=== PATIENT | male | born 1985 | race Caucasian/White ===

== ENCOUNTER 2022-11-09 18:17 | Emergency (ER) | payer BC ==
[2022-11-09 18:38] VITALS: BP 116/79; PULSE 82; RESP 20; TEMP 99; BMI 31.1
[2022-11-09] MEDS ORDERED: predniSONE 20 MG TABLET (UD) PO ONE (18:38)
[2022-11-09] MEDS ORDERED: predniSONE 20 MG TABLET (UD) ONE (19:05)
== END 2022-11-09 19:13 | disposition home or self-care (01) ==
LOC: FER 18:17
DX: R21 Rash and other nonspecific skin eruption (principal); T78.40XA Allergy, unspecified, initial encounter
CPT/HCPCS: 99283-25